=== PATIENT | female | born 1975 | race Caucasian/White ===

== ENCOUNTER → 2016-10-01 09:51 | Outpatient (CLI) | payer MEDICAID ==
[2010-07-06 07:14] VITALS: BMI 27.1
== END | disposition home or self-care (01) ==
LOC: D.MRI 09:51
DX: M54.12 Radiculopathy, cervical region (principal)

== ENCOUNTER 2018-01-29 18:37 | Inpatient (IN) | payer SELFPAY ==
[~2018-01-29] VITALS: Ht 177.8 cm; Wt 81.8 kg
--- NOTE | ~2018-01-29 | CN ---
PATIENT NAME:MARIOLA MCBRIDE MEDICAL RECORD: [id number] : 77 LOCATION:[id number] ADMIT DATE: 01/29/18 ACCOUNT: [id number] CONSULTING PHYSICIAN: JERED LEON MD REFERRING PHYSICIAN: ANNA BENTON MD DATE OF CONSULTATION: 01/30/2018 PSYCHIATRIC EVALUATION IDENTIFYING DATA: The patient is 42 years old and she is admitted to the hospital secondary to an overdose. CHIEF COMPLAINT: None. HISTORY OF PRESENT ILLNESS: The patient is documented by multiple individuals in the Emergency Room and from the intensive care unit as having made suicidal statements. She now denies it and says all of them are misrepresenting what she really said. When asked about how or why that could possibly be, she has no explanation. She is clearly very emotionally distraught with some liability and a lot of tears. She has what are obviously self-inflicted scratches on her left arm, where she has been cutting herself, but she says that it happened when she fell in the bushes. Her and daughter are present in the room. The says he did not hear her say anything about wanting to kill herself and that the ambulance was simply called because he knew she had taken some pills and he could not arouse her and so he called an ambulance. The patient's daughter was there and the patient's daughter says that Mariola called her and said she wanted her to come over to the house and burn it down with her in it. The daughter then leaves the room in tears. The patient says that that is being blown out of proportion. She endorses a lot of vegetative depressive symptoms, but denies that she is depressed. MENTAL STATUS EXAMINATION: The patient is awake; alert; and oriented to person, place, time, and situation. Her mood is anxious. Her affect is labile. Thought processes are circumstantial. Memory, concentration, and abstraction abilities are impaired. She is denying any thoughts of harming herself or others as well as overt psychotic symptoms. ASSESSMENT: 1. Bipolar disorder versus major depression. 2. Amphetamine abuse. 3. Marijuana abuse. PLAN: The patient does have a history of substance use. She is minimizing her use of amphetamines and marijuana at this time. She did take an overdose of an animal tranquilizer and it is documented that, she did so with the intention to kill herself, by more than one individual and then her daughter made the statement she did. I think there is no doubt that this patient was trying to hurt herself. I am happy that she is denying it now, but I do not know if that is because she just wants to go home and complete the task. I think there is no reasonable alternative but to insist that she go to inpatient psychiatric care to be observed, evaluated, and possibly treated. She is agreeable to doing this at this time. I am not sure if she will change her mind as that takes place, but either way, she must go whether it is involuntarily or voluntarily. TRANSINT:[id number] Voice Confirmation ID: [id number] DOCUMENT ID: [id number] CONSULT REPORT [id number] MARIOLA MCBRIDE, JERED GRAY at 1435 CC: [id number] DICTATION DATE: 01/30/18 1333 SERVOMECHANISM DESIGNER: 01/30/18 1346 DIS IN 01/30/18 [id number] [place] [address]
[2018-01-29 19:21] VITALS: BP 88/46
[2018-01-29 19:39] VITALS: BP 91/50
[2018-01-29 19:44] LABS: ALBUMIN 3.6 g/dL (3.4-5.0); ALKALINE PHOSPHATASE 68 U/L (46-116); ALT (SGPT) 20 U/L (10-68); BILIRUBIN - TOTAL 0.94 mg/dL (0.2-1.3); CALC OSMOLALITY 279 mosm/kg (275-300); CHLORIDE - SERUM 104 mmol/L (98-107); CREATININE - SERUM 0.8 mg/dL (0.6-1.3); GLUCOSE 92 mg/dL (74-106); MAGNESIUM - SERUM 1.7 mg/dL (1.8-2.4); PROTEIN - SERUM 6.3 g/dL (6.4-8.2); SODIUM 140 mmol/L (136-145); UREA NITROGEN 15 mg/dL (7-18); eGFR NON AFRICAN AMERICAN 84 mL/min (90-120)
[2018-01-29 19:47] LABS: BASOPHILS 0.2 % (0-2); EOSINOPHILS 1.4 % (0-7); HEMOGLOBIN 11.9 g/dL (12-16); IMMATURE GRANULOCYTES 0.2 % (0-5); LYMPHOCYTES 33.6 % (15-50); MCH 31.2 pg (26.0-34.0); MCV 91.6 fL (80.0-100.0); MEAN PLATELET VOLUME 9.7 fL (7.4-10.4); MONOCYTES 7.7 % (2-11); NEUTROPHILS 56.9 % (40-80); PLATELET COUNT 228 10x3/uL (130-400); RBC 3.82 10x6/uL (4.00-5.40); RDW 12.5 % (11.5-14.5); WBC 6.4 10x3/uL (4.8-10.8)
[2018-01-29 20:02] LABS: POTASSIUM - SERUM 2.8 mmol/L (3.5-5.1)
[2018-01-29 20:04] VITALS: BP 102/63
[2018-01-29 20:43] LABS: UDS - AMPHET POSITIVE QUAL (NEGATIVE); UDS - BARB NEGATIVE QUAL (NEGATIVE); UDS - BENZO NEGATIVE QUAL (NEGATIVE); UDS - COCAINE NEGATIVE QUAL (NEGATIVE); UDS - OPIATE NEGATIVE QUAL (NEGATIVE); UDS - PCP NEGATIVE QUAL (NEGATIVE); UDS - THC POSITIVE QUAL (NEGATIVE)
[2018-01-29 20:49] LABS: HCG URINE NEGATIVE (NEGATIVE)
[2018-01-29 20:59] LABS: APPEARANCE CLEAR (CLEAR); BILIRUBIN 1+ (NEGATIVE); COLOR DK YELLOW (YELLOW); GLUCOSE NEGATIVE (NEGATIVE); KETONE LARGE mg/dL (NEGATIVE); NITRITE NEGATIVE (NEGATIVE); PROTEIN TRACE mg/dL (NEGATIVE); SPECIFIC GRAVITY 1.025 (1.005-1.020); UROBILINOGEN NORMAL (NORMAL)
[2018-01-29 21:00] LABS: WHITE CELLS - URINE 0-5 /hpf (0-5)
[2018-01-29 21:01] LABS: BACTERIA FEW /hpf (NONE SEEN); EPITHELIAL CELLS 0-5 /hpf (0-5); MUCUS >1+ /lpf (NONE SEEN); RED CELLS - URINE 0-5 /hpf (0-5)
[2018-01-29] MEDS ORDERED: ZOLOFT100 MG PO (21:44)
[2018-01-29 22:18] VITALS: BP 103/66; BMI 25.8
[2018-01-29 23:00] VITALS: BP 88/51
[2018-01-30] VITALS (9 sets, daily range): BP systolic 91–130; BP diastolic 52–76; Ht 177.8 cm; Wt 81.8 kg
== END 2018-01-30 19:57 | DRG 918 ==
LOC: D.ER 18:37 → D.ICU 20:27 → D.EDHOLD 20:27 → D.ICU 21:19
PROVIDERS: Family Medicine
DX: T43.3X2A Poisoning by phenothiazine antipsychotics and neuroleptics, intentional self-harm, initial encounter (principal); F17.200 Nicotine dependence, unspecified, uncomplicated; F15.10 Other stimulant abuse, uncomplicated; F12.10 Cannabis abuse, uncomplicated; E87.6 Hypokalemia; D64.9 Anemia, unspecified; E83.42 Hypomagnesemia

== ENCOUNTER 2018-06-02 13:38 | Emergency (ER) | payer SELFPAY ==
[2018-01-30 10:54] VITALS: BMI 25.8
[~2018-06-02 13:38] MED LIST: ZOLOFT100 MG PO
== END 2018-06-02 14:04 | disposition left against medical advice (07) ==
LOC: D.ER 13:38
DX: M54.2 Cervicalgia (principal)